=== PATIENT | male | born 1945 | race Caucasian/White ===

== ENCOUNTER 2018-04-29 22:23 | Emergency (ER) | payer OTHER ==
[2018-04-29 22:32] VITALS: BP 122/67; PULSE 88; TEMP 98.3; BMI 24.3
--- NOTE | 2018-04-29 22:37 | PDOC ---
History of Present Illness <Yecenia Clay - Last Filed: 04/29/18 23:06> - History of Present Illness Initial Comments: 04/29/18 22:40 Mr. Goddard is a 72 yo male w/ pmh of DM and HTN who presents for evaluation of 1 week history of itchy scalp. Patient reports this started following haircut approximately 1 week ago. Starting 3 days ago patient started to notice red areas around yazidi w/ associated increased itching. Patient has tried neosporin ointment and head and shoulders with no relief from symptoms. The patient denies chest pain, shortness of breath, headache and dizziness. Denies fever, chills, nausea, vomit, diarrhea and constipation. Denies dysuria, frequency, urgency and hematuria. <Dank Schofield - Last Filed: 04/29/18 23:33> - General Chief Complaint: Abscess Boil Stated Complaint: INFECTION ON HEAD Time Seen by Provider: 04/29/18 22:36 Past History <Yecenia Clay - Last Filed: 04/29/18 23:06> - Past Medical History COPD: No Diabetes: Yes Hypercholesterolemia: Yes - Surgical History Orthopedic Surgery: Yes (rt leg arthroscopy in 2009) - Suicide/Smoking/Psychosocial Hx Smoking Status: No Smoking History: Never smoked Have you smoked in the past 12 months: No Number of Cigarettes Smoked Daily: 0 If you are a former smoker, when did you quit?: 22 yrs ago Hx Alcohol Use: No Drug/Substance Use Hx: No Substance Use Type: None Hx Substance Use Treatment: No <Dank Schofield - Last Filed: 04/29/18 23:33> - Past Medical History Allergies/Adverse Reactions: Allergies Allergy/AdvReac Type Severity Reaction Status Date / Time No Known Allergies Allergy Verified 04/29/18 22:32 Home Medications: Ambulatory Orders Sitagliptin Phos/Metformin HCl [Janumet 50-500 mg Tablet] 1 each PO DAILY Valacyclovir HCl [Valtrex -] 1,000 mg PO TID #21 tablet 04/29/18 Review of Systems - Review of Systems Comments:: 04/29/18 22:41 GENERAL/CONSTITUTIONAL: No fever or chills. No weakness. HEAD, EYES, EARS, NOSE AND THROAT: +Head itching / skin changes as described. No change in vision. No ear pain or discharge. No sore throat. CARDIOVASCULAR: No chest pain or shortness of breath RESPIRATORY: No cough, wheezing, or hemoptysis. GASTROINTESTINAL: No nausea, vomiting, diarrhea or constipation. GENITOURINARY: No dysuria, frequency, or change in urination. MUSCULOSKELETAL: No joint or muscle swelling or pain. No neck or back pain. SKIN: +Head rash only as described NEUROLOGIC: No headache, vertigo, loss of consciousness, or change in strength/ sensation. ENDOCRINE: No increased thirst. No abnormal weight change HEMATOLOGIC/LYMPHATIC: No anemia, easy bleeding, or history of blood clots. ALLERGIC/IMMUNOLOGIC: No hives or skin allergy. <Dank Schofield - Last Filed: 04/29/18 23:33> *Physical Exam - Vital Signs Last Vital Signs Temp Pulse Resp BP Pulse Ox 98.3 F 88 18 122/67 98 04/29/18 22:30 04/29/18 22:30 04/29/18 22:30 04/29/18 22:30 04/29/18 22:30 <Yecenia Clay - Last Filed: 04/29/18 23:06> - Vital Signs Last Vital Signs Temp Pulse Resp BP Pulse Ox 98.3 F 88 18 122/67 98 04/29/18 22:30 04/29/18 22:30 04/29/18 22:30 04/29/18 22:30 04/29/18 22:30 - Physical Exam Comments: 04/29/18 22:41 GENERAL: Awake, alert, and fully oriented, in no acute distress HEAD: +Shingles appearing rash noted to R side of upper head in single dermatome. No signs of trauma, normocephalic, atraumatic EYES: PERRLA, EOMI, sclera anicteric, conjunctiva clear ENT: Auricles normal inspection, hearing grossly normal, nares patent, oropharynx clear without exudates. Moist mucosa NECK: Normal ROM, supple, no lymphadenopathy, JVD, or masses LUNGS: No distress, speaks full sentences, clear to auscultation bilaterally HEART: Regular rate and rhythm, normal S1 and S2, no murmurs, rubs or gallops, peripheral pulses normal and equal bilaterally. ABDOMEN: Soft, nontender, normoactive bowel sounds. No guarding, no rebound. No masses EXTREMITIES: Normal inspection, Normal range of motion, no edema. No clubbing or cyanosis. NEUROLOGICAL: Cranial nerves II through XII grossly intact. Normal speech, normal gait, no focal sensorimotor deficits SKIN: +As above to head, otherwise warm, dry, normal turgor, no rashes or lesions noted. <Dank Schofield - Last Filed: 04/29/18 23:33> Moderate Sedation - Procedure Monitoring Vital Signs: Procedure Monitoring Vital Signs Temperature 98.3 F 04/29/18 22:30 Pulse Rate 88 04/29/18 22:30 Respiratory Rate 18 04/29/18 22:30 Blood Pressure 122/67 04/29/18 22:30 O2 Sat by Pulse Oximetry (%) 98 04/29/18 22:30 <Yecenia Clay - Last Filed: 04/29/18 23:06> - Procedure Monitoring Vital Signs: Procedure Monitoring Vital Signs Temperature 98.3 F 04/29/18 22:30 Pulse Rate 88 04/29/18 22:30 Respiratory Rate 18 04/29/18 22:30 Blood Pressure 122/67 04/29/18 22:30 O2 Sat by Pulse Oximetry (%) 98 04/29/18 22:30 <Dank Schofield - Last Filed: 04/29/18 23:33> ED Treatment Course - LABORATORY CBC & Chemistry Diagram: 04/29/18 23:02 04/29/18 23:02 <Dank Schofield - Last Filed: 04/29/18 23:33> Medical Decision Making - Medical Decision Making 04/29/18 23:18 Mr. Goddard is a 72 yo male w/ pmh as described who presents for evaluation of rash c/w shingles. Given location, patient evaluated w/ tetracaine/ flourescein w/ no concerning findings. Optho f/u information likewise given. Patient advised to stay home from work until rash gone; Rx sent to pharmacy. Labs grossly wnl as below. Discharging to home. 04/29/18 23:33 Laboratory Results - last 24 hr 04/29/18 04/29/18 23:02 23:02 WBC 5.8 RBC 3.93 L Hgb 12.2 Hct 36.1 D MCV 92.0 MCH 31.0 MCHC 33.7 RDW 12.9 Plt Count 283 MPV 7.7 D Absolute Neuts (auto) 3.8 Neutrophils % 65.9 Lymphocytes % 17.7 D Monocytes % 13.5 H Eosinophils % 1.9 D Basophils % 1.0 D Nucleated RBC % 0 Sodium 138 Potassium 4.6 Chloride 105 Carbon Dioxide 29 Anion Gap 5 L BUN 17 Creatinine 1.1 Creat Clearance w eGFR > 60 Random Glucose 241 H Calcium 8.7 Total Bilirubin 0.2 AST 10 L ALT 19 Alkaline Phosphatase 56 Total Protein 6.6 Albumin 3.6 <Dank Schofield - Last Filed: 04/29/18 23:33> *DC/Admit/Observation/Transfer - Discharge Dispostion Decision to Admit order: No <Yecenia Clay - Last Filed: 04/29/18 23:06> <Dank Schofield - Last Filed: 04/29/18 23:33> Diagnosis at time of Disposition: Herpes zoster ophthalmicus Shingles rash Qualifiers: Herpes zoster complications: unspecified herpes zoster complication Qualified Code(s): B02.8 - Zoster with other complications - Discharge Dispostion Disposition: HOME Condition at time of disposition: Stable - Prescriptions Prescriptions: Valacyclovir HCl [Valtrex -] 1,000 mg PO TID #21 tablet - Referrals Referrals: Mei Cruz MD [Staff Physician] - Topher Armas MD [Non Staff, Medical] - - Patient Instructions Printed Discharge Instructions: DI for Shingles Additional Instructions: You were evaluated today in the emergency room for your rash and found to have shingles. We have sent a prescription to your pharmacy for shingles medication. Take as proscribed. We have also provided opthalmology information so you may follow-up with an drilling field specialist. Return to ER if any inability to take medications, fever, chills, or other concerning symptoms. - Post Discharge Activity Forms/Work/School Notes: Back to Work
[2018-04-29] MEDS ORDERED: valACYclovir HCL 1000 MG TABLET PO ONE (22:58)
--- NOTE | 2018-04-29 22:58 | PDOC ---
History of Present Illness <Sandra Ramey - Last Filed: 04/29/18 23:10> <Yecenia Clay - Last Filed: 04/29/18 23:47> - General Chief Complaint: Abscess Boil Stated Complaint: INFECTION ON HEAD Time Seen by Provider: 04/29/18 22:36 Attending Attestation - HPI HPI: 04/29/18 23:10 The patient is a 72 year old male with past medical history significant for DM, HTN and bilateral knee replacement presents to the emergency department with itchy scalp. The patient presents with 1 week of itchy scale with increasing redness to the temporals areas for the past 3 days. The patient reports the itchiness has progressed into a burning quality. The patient states the symptoms presents about a week ago after getting haircut. The patient reports using neosporin and different shampoos without relief. Denies fever. - Physicial Exam PE: 04/29/18 23:11 GENERAL: Awake, alert, and fully oriented, in no acute distress. Afebril HEAD: +Clumped herpetic vesicles to the right forehead and right temporal. No signs of trauma EYES: No eye involvement, no eye pain. PERRLA, EOMI, sclera anicteric, conjunctiva clear ENT: Auricles normal inspection, hearing grossly normal, nares patent, oropharynx clear without exudates. Moist mucosa NECK: Normal ROM, supple, no lymphadenopathy, JVD, or masses LUNGS: Breath sounds equal, clear to auscultation bilaterally. No wheezes, and no crackles HEART: Regular rate and rhythm, normal S1 and S2, no murmurs, rubs or gallops ABDOMEN: Soft, nontender. No guarding, no rebound. No masses EXTREMITIES: Normal range of motion, no edema. No clubbing or cyanosis. No cords, erythema, or tenderness NEUROLOGICAL: Cranial nerves II through XII grossly intact. Normal speech, normal gait SKIN: Warm, Dry, normal turgor, no rashes or lesions noted. - Medical Decision Making 04/29/18 23:17 Documentation prepared by Sandra Ramey, acting as medical detail representative for Yecenia Clay MD. <Sandra Ramey - Last Filed: 04/29/18 23:10> - Resident Resident Name: Dank Schofield - ED Attending Attestation I have performed the following: I have examined & evaluated the patient, The case was reviewed & discussed with the resident, I agree w/resident's findings & plan <Yecenia Clay - Last Filed: 04/29/18 23:47> Past History <Sandra Ramey - Last Filed: 04/29/18 23:10> - Past Medical History COPD: No Diabetes: Yes Hypercholesterolemia: Yes - Surgical History Orthopedic Surgery: Yes (rt leg arthroscopy in 2009) - Suicide/Smoking/Psychosocial Hx Smoking Status: No Smoking History: Never smoked Have you smoked in the past 12 months: No Number of Cigarettes Smoked Daily: 0 If you are a former smoker, when did you quit?: 22 yrs ago Hx Alcohol Use: No Drug/Substance Use Hx: No Substance Use Type: None Hx Substance Use Treatment: No <Yecenia Clay - Last Filed: 04/29/18 23:47> - Past Medical History Allergies/Adverse Reactions: Allergies Allergy/AdvReac Type Severity Reaction Status Date / Time No Known Allergies Allergy Verified 04/29/18 22:32 Home Medications: Ambulatory Orders Sitagliptin Phos/Metformin HCl [Janumet 50-500 mg Tablet] 1 each PO DAILY Valacyclovir HCl [Valtrex -] 1,000 mg PO TID #21 tablet 04/29/18 *Physical Exam - Vital Signs Last Vital Signs Temp Pulse Resp BP Pulse Ox 98.3 F 88 18 122/67 98 04/29/18 22:30 04/29/18 22:30 04/29/18 22:30 04/29/18 22:30 04/29/18 22:30 <Sandra Ramey - Last Filed: 04/29/18 23:10> - Vital Signs Last Vital Signs Temp Pulse Resp BP Pulse Ox 98.3 F 88 18 122/67 98 04/29/18 22:30 04/29/18 22:30 04/29/18 22:30 04/29/18 22:30 04/29/18 22:30 <Yecenia Clay - Last Filed: 04/29/18 23:47> Moderate Sedation - Procedure Monitoring Vital Signs: Procedure Monitoring Vital Signs Temperature 98.3 F 04/29/18 22:30 Pulse Rate 88 04/29/18 22:30 Respiratory Rate 18 04/29/18 22:30 Blood Pressure 122/67 04/29/18 22:30 O2 Sat by Pulse Oximetry (%) 98 04/29/18 22:30 <Sandra Ramey - Last Filed: 04/29/18 23:10> - Procedure Monitoring Vital Signs: Procedure Monitoring Vital Signs Temperature 98.3 F 04/29/18 22:30 Pulse Rate 88 04/29/18 22:30 Respiratory Rate 18 04/29/18 22:30 Blood Pressure 122/67 04/29/18 22:30 O2 Sat by Pulse Oximetry (%) 98 04/29/18 22:30 <Yecenia Clay - Last Filed: 04/29/18 23:47> ED Treatment Course - LABORATORY CBC & Chemistry Diagram: 04/29/18 23:02 04/29/18 23:02 <Sandra Ramey - Last Filed: 04/29/18 23:10> - LABORATORY CBC & Chemistry Diagram: 04/29/18 23:02 04/29/18 23:02 <Yecenia Clay - Last Filed: 04/29/18 23:47> Medical Decision Making - Medical Decision Making 04/29/18 23:47 fluorescine exam is normal. Pt will be asked to follow with ophtho. <Yecenia Clay - Last Filed: 04/29/18 23:47> *DC/Admit/Observation/Transfer <Sandra Ramey - Last Filed: 04/29/18 23:10> <Yecenia Clay - Last Filed: 04/29/18 23:47> Diagnosis at time of Disposition: Herpes zoster ophthalmicus Shingles rash Qualifiers: Herpes zoster complications: unspecified herpes zoster complication Qualified Code(s): B02.8 - Zoster with other complications - Discharge Dispostion Disposition: HOME Condition at time of disposition: Stable - Prescriptions Prescriptions: Valacyclovir HCl [Valtrex -] 1,000 mg PO TID #21 tablet - Referrals Referrals: Topher Armas MD [Non Staff, Medical] - Mei Cruz MD [Staff Physician] - - Patient Instructions Printed Discharge Instructions: DI for Shingles Additional Instructions: You were evaluated today in the emergency room for your rash and found to have shingles. We have sent a prescription to your pharmacy for shingles medication. Take as proscribed. We have also provided opthalmology information so you may follow-up with an quality assurance specialist. Return to ER if any inability to take medications, fever, chills, or other concerning symptoms. - Post Discharge Activity Forms/Work/School Notes: Back to Work
[2018-04-29 23:11] LABS: EOS % 1.9 % (0-4.5); HEMATOCRIT 36.1 % (35.4-49); HEMOGLOBIN 12.2 GM/dL (11.7-16.9); LYMPH % 17.7 % (8-40); MCHC 33.7 g/dl (32.0-35.9); MEAN PLT VOLUME 7.7 fl (7.5-11.1); MONO % 13.5 % (3.8-10.2); NEUT % 65.9 % (42.8-82.8); PLATELET COUNT 283 K/MM3 (134-434); RBC 3.93 M/mm3 (4.00-5.60); RDW 12.9 % (11.9-15.9); WHITE BLOOD COUNT 5.8 K/mm3 (4.0-10.0)
[2018-04-29] MEDS ORDERED: TETRACAINE 0.5% OPHTH SOLN 2 ML BOTTLE OD ONE (23:12)
[2018-04-29] MEDS ORDERED: FLUORESCEIN NA 1 EA STRIP OD ONE (23:12)
[2018-04-29] MEDS ORDERED: TETRACAINE 0.5% OPHTH SOLN 2 ML BOTTLE ONE (23:20)
[2018-04-29] MEDS ORDERED: valACYclovir HCL 500 MG TABLET (FP) ONE (23:20)
[2018-04-29] MEDS ORDERED: FLUORESCEIN NA 1 EA STRIP ONE (23:20)
[2018-04-29 23:32] LABS: ALBUMIN 3.6 g/dl (3.4-5.0); ALK PHOS 56 U/L (45-117); ANION GAP 5 MMOL/L (8-16); BILIRUBIN,TOTAL 0.2 mg/dL (0.2-1); BLOOD UREA NITROGEN 17 mg/dL (7-18); CALCIUM 8.7 mg/dL (8.5-10.1); CHLORIDE 105 mmol/L (98-107); CO2 29 mmol/L (21-32); CREATININE 1.1 mg/dL (0.55-1.3); GLUCOSE,RANDOM 241 mg/dL (74-106); POTASSIUM 4.6 mmol/L (3.5-5.1); SGOT/AST 10 U/L (15-37); SGPT/ALT 19 U/L (13-61); SODIUM 138 mmol/L (136-145); TOT PROT 6.6 g/dl (6.4-8.2)
== END 2018-04-29 23:49 | disposition home or self-care (01) ==
LOC: JER 22:23
DX: B02.8 Zoster with other complications (principal); B02.30 Zoster ocular disease, unspecified; I10 Essential (primary) hypertension; E78.00 Pure hypercholesterolemia, unspecified; Z79.84 Long term (current) use of oral hypoglycemic drugs
CPT/HCPCS: 36415; 80053; 85025; 99281-25

== ENCOUNTER 2023-10-10 15:25 | Emergency (ER) | payer OTHER ==
[2023-10-10 15:33] VITALS: BP 120/69; PULSE 95; RESP 16; TEMP 98.8; BMI 21.3
[2023-10-10] MEDS ORDERED: DIPHTH,PERTUSS(ACELL),TET 0.5 ML DISP.SYRIN IM ONE (16:51)
[2023-10-10] MEDS: DIPHTH,PERTUSS(ACELL),TET 0.5 ML DISP.SYRIN IM ONE (16:56)
[2023-10-10] MEDS: CIPROFLOXACIN 500 MG TABLET (RESTRICTED TO ID) PO ONE (16:57)
== END 2023-10-10 17:01 | disposition home or self-care (01) ==
LOC: FER 15:25 → SUPCPDRO 15:25 → FER 17:01
PROC: 3E0234Z Introduction of Serum, Toxoid and Vaccine into Muscle, Percutaneous Approach (ICD-10-PCS; principal; 2023-10-10)
DX: S90.851A Superficial foreign body, right foot, initial encounter (principal); W26.8XXA Contact with other sharp object(s), not elsewhere classified, initial encounter; Y93.01 Activity, walking, marching and hiking
CPT/HCPCS: 73630-TC-RT-FY; 90471; 90715; 99284-25